=== PATIENT | male | born 1970 | race Caucasian/White ===

== ENCOUNTER 2016-10-29 22:54 | Emergency (ER) | payer SELFPAY ==
[~2016-10-29] VITALS: Ht 160 cm; Wt 82.0 kg
[2016-10-30] MEDS ORDERED: VISCOUS LIDOCAINE 2% 15 ML UDC PO STA (00:18)
[2016-10-30] MEDS ORDERED: DICYCLOMINE 10 MG/5 ML ORAL SYR PO STA (00:18)
[2016-10-30] MEDS ORDERED: MAGNESIUM/ALUMINUM HYDROXIDE/SIMETHICONE 30ML UDC PO STA (00:18)
[2016-10-30] MEDS ORDERED: FAMOTIDINE 20MG/2ML VIAL IV STA (00:18)
[2016-10-30] MEDS ORDERED: ONDANSETRON HCL 4MG/2ML VIAL IV STA (00:18)
[2016-10-30] MEDS ORDERED: MORPHINE SULFATE 4 MG/ML CPJ (NOT FOR IM USE) IV ONE (00:30)
[2016-10-30 00:38] LABS: BASOPHILS % 0.4 % (0.0-2.0); EOSINOPHILS % 0.2 % (0.0-5.0); HEMATOCRIT. 42.7 % (42.0-52.0); HEMOGLOBIN. 14.3 g/dL (14.0-18.0); LYMPHOCYTES % 9.2 % (20.0-50.0); MEAN CORPUSCULAR HEMOGLOBIN 28.1 pg (28.0-32.0); MEAN CORPUSCULAR VOLUME 84.1 fL (80.0-94.0); MEAN PLATELET VOLUME 8.4 fl (7.4-10.4); MONOCYTES % 5.1 % (2.0-8.0); NEUTROPHILS % 85.1 % (40.0-76.0); PLATELET 223 x1000/uL (130-400); RED BLOOD CELL COUNT 5.08 mill/uL (4.7-6.1); RED CELL DISTRIBUTION WIDTH 14.3 % (11.6-14.6)
[2016-10-30 00:43] LABS: CHLORIDE 99 mEq/L (98-107)
[2016-10-30 00:46] LABS: PROTHROMBIN TIME 10.7 sec
[2016-10-30 00:52] LABS: CARBON DIOXIDE 28 mEq/L (21-32)
[2016-10-30] MEDS ORDERED: ACETAMINOPHEN WITH CODEINE 300/30MG TABLET PO ONE (02:30)
[2016-10-30 03:10] VITALS: BP 145/75
== END 2016-10-30 03:31 | disposition home or self-care (01) ==
LOC: EDSEX 22:54 → ER 22:54
DX: K80.20 Calculus of gallbladder without cholecystitis without obstruction (principal); E11.9 Type 2 diabetes mellitus without complications; K76.0 Fatty (change of) liver, not elsewhere classified; Z87.891 Personal history of nicotine dependence; Z90.49 Acquired absence of other specified parts of digestive tract
CPT/HCPCS: 36415; 76705; 80053; 83690; 85025; 85610; 93005; 96374; 96375; 99285; J2270; J2405; J3490; Z7610